=== PATIENT | female | born 1965 | race Caucasian/White ===

== ENCOUNTER → 2020-10-04 13:37 | Outpatient (CLI) | payer OTHER, SELFPAY ==
[2020-09-26 11:21] VITALS: BMI 24.8
--- NOTE | 2020-10-04 13:57 | CT_ITS ---
STUDY: CTA HEAD AND NECK WITH CONTRAST REASON FOR EXAM: Female, 55 years old. Stroke RADIATION DOSAGE (If Supplied By Facility): CTDIvol = ( 33.68 ) mGy, DLP = ( 1668.26 ) mGycm TECHNIQUE: CT angiography was performed with a multi-detector CT scanner. Data acquisition was obtained from the skull base through the vertex following intravenous administration of IV 100ML ISOVUE 300. MIP images were reconstructed from the axial data set. Post-processing of the angiographic images was performed, with multiplanar reformation and 3D reconstruction. Individualized dose optimization techniques were used for this CT. COMPARISON: No relevant priors. FINDINGS: Normal bilateral petrous carotid arteries. Normal right cavernous carotid artery with a normal supraclinoid bifurcation. There is calcified plaque formation of the left cavernous carotid artery, without a cross-sectional luminal stenosis. Normal right A1 segments of the anterior cerebral artery. Normal left A1 segments of the anterior cerebral artery. Normal intact anterior communicating artery (ACOM). Normal bilateral A2 segments of the anterior cerebral arteries. Normal right M1 and M2 segments of the middle cerebral arteries, with a normal M1 bifurcation. Normal left M1 and M2 segments of the middle cerebral arteries, with a normal M1 bifurcation. Normal right posterior communicating artery (PCOM). Normal left posterior communicating artery (PCOM). Normal bilateral vertebral arteries. Normal basilar artery with a normal basilar bifurcation. The visualized bilateral superior cerebellar (SCA) arteries are normal. Normal bilateral P1, P2 and visualized P3 segments of the posterior cerebral arteries. There is no demonstrated aneurysm of the [place]. There is no demonstrated abnormality of the visualized brain. AORTIC ARCH: Normal visualized aortic arch. Normal origins of the brachiocephalic, left common carotid, and left subclavian arteries. RIGHT CAROTID ARTERIES: Normal right common carotid artery (CCA). Normal right common carotid bulb. There is mild atherosclerotic plaque formation of the origin of the right internal carotid artery with less than 50% cross sectional diameter stenosis. Normal visualized cervical portion of the right internal carotid artery. Normal origin of the right external carotid artery (ECA). LEFT CAROTID ARTERIES: Normal left common carotid artery (CCA). Normal left common carotid bulb. Normal origin of the left internal carotid (ICA) artery without a hemodynamically significant stenosis. Normal visualized cervical portion of the left internal carotid artery. Normal origin of the left external carotid artery (ECA). VERTEBRAL ARTERIES: Normal bilateral vertebral arteries. CT/CTA Head AND Neck W/ Contrast IMPRESSION: Calcific plaque at the origin of the right internal carotid artery with less than 50% narrowing. Electronically Signed: Dale Gray MD at 14:52 EDT , Service support ,
[2020-10-04 14:20] LABS: Erythrocyte Sedimentation Rate 8 mm/hr (0-30)
[2020-10-04 14:51] LABS: EST Glomerular Filtration Rate 79 mL/min (>60); Est Glom Filt Rate - Afr Amer 95 mL/min (>60)
[2020-10-08 07:36] LABS: ANTINUCLEAR ANTIBODIES DIRECT Negative (Negative)
[2020-10-11 14:53] LABS: Anti-Cardiolipin Ab, IgA, Qn < 9 APL U/mL (0-11); Anti-Cardiolipin Ab, IgG, Qn < 9 GPL U/mL (0-14); Anti-Cardiolipin Ab, IgM, Qn < 9 MPL U/mL (0-12); Protein C Antigen 103 % (60-150); Protein S, Free 110 % (57-157); Protein S, Total 77 % (60-150)
== END ==
PROVIDERS: PCP Pediatrics; Referring Provider Psychiatry & Neurology Neurology; Visit Provider Psychiatry & Neurology Neurology
DX: D68.59 Other primary thrombophilia (principal); I63.9 Cerebral infarction, unspecified; E55.9 Vitamin D deficiency, unspecified
CPT/HCPCS: 36415; 70496; 70498; 81240; 81241; 82565; 82652; 85302; 85305; 85306; 85652; 86038; 86147; 86225; 86235; Q9967

== ENCOUNTER → 2020-10-05 09:24 | Outpatient (CLI) | payer OTHER, SELFPAY ==
[2020-09-26 11:21] VITALS: BMI 24.8
--- NOTE | 2020-10-05 09:27 | ECHOD_ITS ---
Reason For Study: THALAMIC STROKE, HYPERCOAGULABLE STATE. Procedure This was a 2D Doppler, Color Flow transthoracic echocardiogram. The study was technically difficult. Exam performed in department. Left Ventricle Normal LV size. Left ventricular systolic function is normal. The estimated ejection fraction is 65 %. No evidence for diastolic dysfunction. No regional wall motion abnormalities noted. Right Ventricle Normal RV size. Normal systolic function. Atria The left atrium is mildly enlarged. Normal right atrium. No doppler evidence for ASD. Bubble contrast study negative for right to left interatrial shunt. Mitral Valve There is no mitral annular calcification. Mild diffuse mitral valve thickening. Mild (1+) mitral valve insufficiency. Tricuspid Valve Normal tricuspid valve. Trivial tricuspid valve insufficiency. Right ventricular systolic pressure estimated to be 36 mmHg. Aortic Valve Trisinus/trileaflet aortic valve. Normal aortic valve. Pulmonic Valve The pulmonic valve is not well visualized. Great Vessels Normal sized aortic root. Pericardium/Pleural No pericardial effusion. Medication 22 gauge I.V. with prn adaptor inserted into left arm. Performed a rapid injection of agitated mix of 9 cc saline and 1cc air to assess for atrial septal defect. MMode/2D Measurements & Calculations LVIDd: 3.6 cm IVSd: 1.0 cm Ao root diam: 3.1 cm LVIDs: 2.5 cm LVPWd: 0.95 cm RVDd: 2.7 cm FS: 29.8 % LAV(MOD-bp): 48.4 ml LA A4 area: 15.2 cm2 LA dimension(2D): 2.8 cm LAV(MOD-bp) Indexed: 26.3 ml/m2 LAV(MOD-sp2): 43.1 ml LAV(MOD-sp4): 43.0 ml RA A4 area: 9.7 cm2 Time Measurements MV dec time: 0.24 sec Doppler Measurements & Calculations MV E max zi: 80.0 cm/sec Lat Peak E' Zi: 6.7 cm/sec Med Peak E' Zi: 6.6 cm/sec MV A max zi: 91.7 cm/sec E/E' lat: 11.9 E/E' med: 12.0 MV E/A: 0.87 Ao V2 max: 120.6 cm/sec LV V1 max: 116.6 cm/sec PA V2 max: 94.3 cm/sec Ao max P.8 mmHg LV V1 max P.4 mmHg TR max zi: 253.7 cm/sec TR max P.3 mmHg ECHO/Echo Complete Interpretation Summary The study was technically difficult. Left ventricular systolic function is normal. The estimated ejection fraction is 65 %. The left atrium is mildly enlarged. Mild diffuse mitral valve thickening. Mild (1+) mitral valve insufficiency. Trivial tricuspid valve insufficiency. Right ventricular systolic pressure estimated to be 36 mmHg. No evidence for diastolic dysfunction. Bubble contrast study negative for right to left interatrial shunt. Ordering Physician: Lukasz Moreno Referring Physician: Whitney Siegel Performed By: Megan Benavidez, JACK, RVT
== END ==
LOC: CVS 09:24
PROVIDERS: PCP Pediatrics; Referring Provider Psychiatry & Neurology Neurology; Visit Provider Psychiatry & Neurology Neurology
DX: D68.59 Other primary thrombophilia (principal); Z86.73 Personal history of transient ischemic attack (TIA), and cerebral infarction without residual deficits
CPT/HCPCS: 93306; A4216